=== PATIENT | male | born 2005 | race Caucasian/White ===

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

== ENCOUNTER 2025-03-23 12:06 | Emergency (ER) | payer OTHER, SELFPAY ==
--- NOTE | 2025-03-23 12:12 | ED_ITS ---
<Statement entered by Gonsalo Roche MD - 03/23/25 15:33> I was consulted by the DAISY, and we discussed the complexity of the problems being addressed. I approved the treatment and management plan for this patient's care in the emergency department, thus performing a substantive portion of the medical decision making. Gonsalo Roche MD, NEETA, FACEP Discharge Plan Disposition Chief Complaint: Wound/Laceration Prescriptions Prescriptions: No Action methylphenidate HCl 10 mg tablet 10 mg PO DAILY promethazine 12.5 mg tablet 12.5 mg PO Q6H PRN (Reason: nausea and vomiting) Qty: 12 0RF methocarbamol 500 mg tablet 500 mg PO Q8H Qty: 90 0RF Referrals Follow up/Referrals: Sophia Barber APRN [Primary Care Provider, Medical] - See instructions Instructions Patient Instructions: DI for Laceration Repair Print Language Print Language: Czech Discharge ED Provider: Gonsalo Roche General Adult HPI General Chief complaint: Wound/Laceration Stated complaint: AO-laceration above L knee Time Seen by Provider: 03/23/25 12:12 History of Present Illness HPI narrative: Patient presents for evaluation of a laceration to his left leg. Patient was cutting trees with a chainsaw and the chainsaw kicked back cutting him on the dorsum of his left leg proximal to the patella. He has no loss of motor or sensory and is ambulatory. Related Data Home Medications ?Medication ?Instructions ?Recorded ?Confirmed methylphenidate HCl 10 mg tablet 10 mg PO DAILY 08/06/23 Previous Rx's ?Medication ?Instructions ?Recorded promethazine 12.5 mg tablet 12.5 mg PO Q6H PRN nausea and 08/06/23 vomiting #12 tabs methocarbamol 500 mg tablet 500 mg PO Q8H #90 tabs 06/28 Allergies Allergy/AdvReac Type Severity Reaction Status Date / Time No Known Allergies Allergy Verified 06/01/19 10:09 [facility] Disclaimer: The information contained in this section may have been updated after the pat ient was seen, as this information can be updated by other users. Social History Smoking Status: Never smoker second hand exposure: No alcohol intake: never current occupational status: other Travel in the last 8 weeks?: None Have you lived/traveled outside US in past 30 days?: No Contact w/someone who lives/traveled outside US past 30 days?: No Exposure to someone with infectious disease in past 14 days?: No Do you have a fever (greater than 100.4 F or 38 C)?: No Have you tested positive for COVID-19?: No Exposed to someone with COVID-19 in past 14 days?: No Do you have a sore throat?: No Do you have a cough?: No Do you have any weakness?: No Do you have any diarrhea?: No Are you experiencing any unusual bleeding?: No Do you have any muscle aches/pain?: No Do you have any abdominal pain?: No Are you experiencing loss of taste or smell?: No Other Medical History Have you received the Flu Vaccine for this season: Yes Have you received the Pneumonia Vaccine: Yes ROS Obtained: Yes Systems reviewed as appropriate & no additional complaints except as documented Physical Exam General General appearance: alert and in no apparent distress Respiratory Respiratory exam: Present normal lung sounds bilaterally Cardiovascular Cardiovascular exam: Present regular rate Neurological Exam Neurological exam: Present alert and oriented X3 Medical Decision Making Medical Records Medical records reviewed: Yes I reviewed the patient's medical records. Screening: Per USPSTF and CDC recommendations, given the prevalence of disease in our region, it is our hospital?s policy to screen for HIV and viral Hepatitis for all patients aged 18 and over and those with ongoing risk factors. Refugio Inquiry Pt receiving controlled substance: No Vital Signs: 03/23/25 12:14 03/23/25 12:19 Temperature 98.2 F Temperature Source Oral Pulse Rate 89 Pulse Rate [Left Radial] 90 Respiratory Rate 19 17 Blood Pressure [Right Arm] 150/97 H Blood Pressure Mean [Right Arm] 114 02 Sat by Pulse Oximetry 100 98 Oxygen Delivery Method Room Air Orders (Tests/Meds): ED MEDICATIONS Discontinued Medications Generic Name Dose Route Start Last Admin Trade Name Freq PRN Reason Stop Dose Admin Cephalexin HCl 500 mg 03/23/25 12:18 03/23/25 12:32 Cephalexin 500mg Capsule PO 03/23/25 12:19 500 mg ONCE ONE Administration Lidocaine/Epinephrine 10 ml 03/23/25 12:18 03/23/25 12:32 Lidocaine 1% W/Epi 1:100,000 20ml Vial SQ 03/23/25 12:19 10 ml ONCE ONE Administration Tetanus/Reduced Diphtheria/Acell Pertussis 0.5 ml 03/23/25 12:39 03/23/25 12:48 Tet/Diphth/Pert-Adult 0.5ml Syringe IM 03/23/25 12:40 0.5 ml .ONCE ONE Administration ORDERS Category Date Time Status Knee XR left 3 views [XR knee LT 3V] Stat Exams 03/23/25 12:18 Taken Medical Decision Narrative: In summary patient is a 20-year-old male who presents to the emergency department for evaluation of left leg laceration from a chainsaw. Patient is hemodynamically stable, afebrile. Physical exam is remarkable for a laceration to his left lower extremity proximal to the patella. It appears to be approximately 4-5 cm. Patient is neurovascularly intact distally to the toes and has painful but full range of motion currently. Differential diagnosis includes simple superficial laceration versus complex deep laceration versus tendon injury etc. Initial workup will be conducted with plain film x-rays and exam after local anesthesia. Initial interventions include Tdap and Keflex. Initial workup reviewed by me and my informative days of his imaging shows no evidence of acute bony abnormality and appears to be very superficial I can see the defect but does not appear to involve deeper structures. After adequate anesthesia wound was explored further and does not penetrate deeper to the tendon sheath of the patella. Given this wound was repaired primarily with ten 4.0 nylon stitches in an interrupted fashion. Patient given first dose of Keflex with prescription sent to his pharmacy given a Td tetanus update and wound care instructions and strict return precautions. Procedures Laceration Laceration 1: Site: lower extremity Side (If applicable): left Size (cm): 5 Description: linear Depth: simple, single layer Local Anesthetic: lidocaine 1% and with epi Amount of anesthesia used (mL): 10 Pre-repair: wound explored, irrigated extensively and deep structures intact Skin layer closed with: nylon Size (cm): 4-0 Number of sutures: 10 Technique: simple, interrupted Critical Care Critical Care Time Critical Care Time: No
[2025-03-23 12:14] VITALS: BP 150/97; PULSE 90; RESP 19; TEMP 36.8; O2SAT 100; BMI 27.5
--- NOTE | 2025-03-23 12:18 | XR_ITS ---
FINAL REPORT CLINICAL HISTORY: cut W/chainsaw dorsal suprapatellar area COMPARISON: 02/11/2024 FINDINGS: LEFT KNEE Three views were obtained. There is no fracture or dislocation. The joint spaces appear normal. There is a soft tissue defect in the anterior distal thigh consistent with laceration. IMPRESSION: Laceration in the anterior distal thigh. Reviewed, Interpreted and Dictated by Kofi Hamlin MD Transcribed by Genesis Lima Authenticated and [facility]
[2025-03-23 12:19] VITALS: PULSE 89; RESP 17; O2SAT 98
[2025-03-23 12:30] VITALS: BP 131/79; PULSE 84; O2SAT 98
--- OUTSIDE RECORDS SUMMARY | 2025-03-23 12:30 | XMS_ITS | Encounter Summary ---
Author Organization Healthcare Address [address] [place] [address] Care Team Providers Care Railroad Switchman Name Role Phone Sophia Barber APRN Primary Care Provider [phone] Encounter Details Date Type Department Care Team (Late st Contact Info) Description 08/13/2023 [facility] [address] [place] [address] Sophia Barber APRN [address] [place] [address] Social History Tobacco Use Types Packs/Day Years Used Date Smoking Tobacco: Never Assessed Sex and Gender Information Value Date Recorded Sex Assigned at Male 08/13/2023 2:19 PM EST Legal Sex Male 7:39 PM EDT Gender Identity Male 08/13/2023 2:19 PM EST Sexual Orientation Not on file documented as of this encounter Plan of Treatment Not on file documented as of this encounter Visit Diagnoses Not on filedocumented in this encounter Care Teams Railroad Switchman Relationship Specialty Start Date End Date Sophia Barber APRN PCP - General 02/15/21 documented as of this encounter
--- OUTSIDE RECORDS SUMMARY | 2025-03-23 12:30 | XMS_ITS | Clinical Summary ---
Author Organization [facility] Address [address] [place] [address] Care Team Providers Care Watch Inspector Final Movement Name Role Phone Sophia Barber APRN Primary Care Provider [phone] Social History Tobacco Use Types Packs/Day Years Used Date Smoking Tobacco: Never Assessed Sex and Gender Information Value Date Recorded Sex Assigned at Male 08/13/2023 2:19 PM EST Legal Sex Male 7:39 PM EDT Gender Identity Male 08/13/2023 2:19 PM EST Sexual Orientation Not on file Plan of Treatment Not on file Care Teams Watch Inspector Final Movement Relationship Specialty Start Date End Date Sophia Barber APRN PCP - General 02/15/21
[2025-03-23] MEDS: LIDOCAINE 1% W/EPI 1:100,000 20ML VIAL 10 ML SQ (12:32)
[2025-03-23] MEDS: cephALEXin 500MG CAPSULE 500 MG PO (12:32)
[2025-03-23] MEDS: TET/DIPHTH/PERT-ADULT 0.5ML SYRINGE 0.5 ML IM (12:48)
--- NOTE | 2025-03-23 12:55 | PC.NURSE ---
TDap updated, patient consent obtained, education complete. Patient tolerated well.
[2025-03-23 13:03] VITALS: BP 131/79; PULSE 91; RESP 17; TEMP 37.1; O2SAT 99
== END 2025-03-23 13:04 | disposition home or self-care (01) ==
PROVIDERS: Emergency Provider Student in an Organized Health Care Education/Training Program; PCP Nurse Practitioner
DX: S81.812A Laceration without foreign body, left lower leg, initial encounter (principal); W29.3XXA Contact with powered garden and outdoor hand tools and machinery, initial encounter; Z23 Encounter for immunization
CPT/HCPCS: 12002; 73562; 90471; 90715; 99283; J2004